=== PATIENT | female | born 1935 | race Caucasian/White ===

== ENCOUNTER → 2016-09-27 | Outpatient (CLI) | payer MEDICARE, BC ==
[~2016-09-27] MED LIST: ACET325T9 PO; ASPI-482 PO; ATOR20TA58 PO; BACL10TA PO; CALC-112 PO; CELE200C PO; CHOL10003 PO; CITA20TA5 PO; DOCU100C28 PO; GLUC100016 PO; HYDR25TA9 PO; IOHEXOL 180 MG/ML 10 ML VIAL. ONE; MULT-658 PO; OMEP20CA9 PO; ONDA4TAB10 SL; RANI150C PO; SUCR1TAB PO; methylPREDNISolone ACETATE 40 MG/ML VIAL. ONE; methylPREDNISolone ACETATE 80 MG/ML VIAL. ONE
--- NOTE | 2016-09-28 02:01 | PAIN ---
DATE OF SERVICE: 09/27/2016 INITIAL CONSULTATION FOR PAIN CLINIC CHIEF COMPLAINT: Neck and left upper extremity pain. HISTORY OF PRESENT ILLNESS: This is an 81-year-old female who presents with history of pain for about 6 months or so, increasing with activity. Pain in the base of the neck and left upper extremity, left arm are in the posterior aspect mainly in the upper arm and forearm and into the hand with tingling and numbness in the left hand intermittent in intensity with tingling, cramping and shooting pain without any specific injury or accident that she is aware of, but has increasing pain again over about 6 months, gradually getting worse. The patient reports she has had some physical therapy in June and July of this year, which did not help the pain very much. The patient reports her disability rating from 0 to 10, 10 being the worst, is 8 with family and home responsibilities, recreation, social activity, and self-care. She did have an MRI scan of the cervical spine showing multilevel cervical spinal canal stenosis, most pronounced at C3-C4, [id number]-[id number] stenosis at C5-C6 and diffuse disk bulge at C6-C7 with diffuse disk bulge, and moderate to severe bilateral neural foraminal stenosis, C7-T1 showing mild bilateral lateral recess narrowing as well. The patient is not taking any current medications for the pain as well. PAST MEDICAL HISTORY: Significant for hypertension, hearing loss, arthritis, gastroesophageal reflux. PREVIOUS SURGERY: Include fractured femur with operative ORIF and redo, bilateral rotator cuff repairs, left carpal tunnel repair, total hysterectomy, appendectomy, bilateral cataract extractions and right foot surgery. CURRENT MEDICATIONS: Include Centrum Silver, vitamin D3, Zantac, baclofen, omeprazole, sucralfate, Zofran, atorvastatin, glucosamine, hydrochlorothiazide, calcium and docusate. ALLERGIES: The patient has no known drug allergies. FAMILY HISTORY: Significant for no major medical problems or conditions that she is aware of. SOCIAL HISTORY: The patient does not smoke, does not drink alcohol. Lives at home on her own. She is a and lives locally in [place], [place], and is retired. REVIEW OF SYSTEMS: The patient's review of systems is positive for those items mentioned in history of present illness. All systems reviewed and otherwise negative. It is complete, full and well documented on the patient's chart. PHYSICAL EXAMINATION: VITAL SIGNS: Today, the patient's blood pressure is 140/79, pulse 87, respirations 20, temperature 98.0 degrees Fahrenheit, height is 5 feet 2 inches, weight 154 pounds. GENERAL: The patient is awake, alert, oriented, appropriate, very pleasant demeanor. HEENT: Head shows normocephalic, atraumatic. Extraocular movements are intact, symmetrical. Oral cavity, mucous membranes are moist and pink. Dentition is intact. NECK: Shows anterior throat supple without palpable lymphadenopathy noted. Swallow reflex is symmetrical. CHEST: Shows normal on inspection. Breath sounds are clear to auscultation bilaterally. HEART: Shows S1 and S2 clear. ABDOMEN: Soft, nontender, nondistended. No palpable organomegaly, no rebound, guarding demonstrated. BACK: The patient's back shows spine grossly midline, normal-appearing cervical lordotic curvature, some mild old flattening of lumbar lordotic curvature. Well-healed surgical scar in the lumbar distribution noted. The patient's cervical paraspinous muscle shows some moderate tenderness to palpation but only in the middle and lower distribution of paraspinous muscles diffusely bilaterally, somewhat more in the superior medial trapezius and lateral trapezius on the left than the right, but is roughly symmetrical. No evidence of atrophy, hypertrophy. No radiation of pain. Upper extremity showed deep tendon reflexes 2+ in the biceps and triceps tendons. 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 Peripheral pulses are 2+ radial distribution. No peripheral edema is noted. No clubbing, no cyanosis. Upper extremities are warm and dry to touch, equal in color and appearance. Shoulder shrug is strong and intact with some minor pain reported in the left shoulder, but without loss of strength and resistance, this is true with abduction of the shoulder at 90 degrees with some minor decrease in strength on the left side and pain reported on the left side at the base of the neck and shoulders, but not on the right. IMPRESSION: 1. This is an 81-year-old female with approximately 6-month history of increasing pain in the base of the neck, left upper extremity in a radicular fashion. 2. MRI scan cervical spine as noted. 3. Hearing loss. 4. Hypertension. 5. Arthritis. PLAN: Options were discussed with the patient including conservative medical management, physical therapy, interventional techniques and she would like to pursue interventional techniques. We discussed a cervical epidural steroid injection using description as well as anatomical models to describe the procedure. Risks were then discussed including, but not limited to bleeding, infection, possibility of epidural hematoma and subsequent neurologic compromise, dural puncture, headaches, spinal cord and/or nerve damage, side effects of steroid medication and poor results regarding pain control. The patient understands and wishes to proceed. The patient will return to clinic in approximately 2 weeks for followup, was counseled on return appointment, activity level, and side effects to be aware of. DIAGNOSES: Cervical radiculopathy with cervical degenerative disk disease and cervical spinal stenosis. PROCEDURE: Cervical epidural steroid injection in translaminar approach at the C6-C7 level using C-arm fluoroscopic guidance under sterile prep and drape using local anesthetic. MEDICATIONS INJECTED: 120 mg Depo-Medrol plus 5 mL of preservative-free normal saline and 2 mL of Isovue for contrast. CONDITION AT DISCHARGE: Stable. The patient tolerated procedure well, had no complications. GUY HICKS MD DR: RHONDA/collins JOB#: [id number] / [id number] ANNIA Pereyra MD
== END | disposition home or self-care (01) ==
LOC: PNCL 10:03
PROVIDERS: ATTEND Anesthesiology
DX: M50.123 Cervical disc disorder at C6-C7 level with radiculopathy (principal); M48.02 Spinal stenosis, cervical region; I10 Essential (primary) hypertension; M19.90 Unspecified osteoarthritis, unspecified site; H91.90 Unspecified hearing loss, unspecified ear; K21.9 Gastro-esophageal reflux disease without esophagitis; Z90.710 Acquired absence of both cervix and uterus; Z98.41 Cataract extraction status, right eye; Z98.42 Cataract extraction status, left eye
CPT/HCPCS: 62321; J1030; J1040

== ENCOUNTER → 2016-10-11 | Outpatient (CLI) | payer MEDICARE, BC ==
[~2016-10-11] MED LIST changes: +BUPIVACAINE MPF 0.25% 10 ML VIAL. ONE; -IOHEXOL 180 MG/ML 10 ML VIAL. ONE; -methylPREDNISolone ACETATE 80 MG/ML VIAL. ONE
== END | disposition home or self-care (01) ==
LOC: PNCL 09:19
PROVIDERS: ATTEND Anesthesiology
DX: M79.1 Myalgia (principal); M50.10 Cervical disc disorder with radiculopathy, unspecified cervical region; M48.02 Spinal stenosis, cervical region
CPT/HCPCS: 20552; J1030; J3490

== ENCOUNTER → 2021-05-26 | Outpatient (CLI) | payer MEDICARE, BC ==
[~2021-05-26] MED LIST changes: -BUPIVACAINE MPF 0.25% 10 ML VIAL. ONE; -CITA20TA5 PO; +CITA20TA6 PO; +HYDR-2145 PO; -HYDR25TA9 PO; +OMEP20CA16 PO; -OMEP20CA9 PO; -methylPREDNISolone ACETATE 40 MG/ML VIAL. ONE
--- NOTE | 2021-05-26 11:10 | RAD ---
EXAM: Sonographic guided thyroid fine-needle aspiration. HISTORY: 85-year-old female presents for sonographic guided fine-needle aspiration of the left thyroi d nodule demonstrated on the sonogram performed 05/12/2021. TECHNIQUE: The risks of the procedure discussed with the patient and written and verbal consent was o btained. A timeout was performed. Sonographic imaging of the left thyroid lobe was performed and the nodule concern was identified. The skin overlying this location was sterilely prepped, draped and inf iltrated with 1 percent lidocaine. Multiple passes were made through the nodule with 25-gauge needles and a Rotex needle with sonographic guidance. Manual compression was maintained until hemostasis ach ieved. A sterile bandage was placed. IMPRESSION: Sonographic guided fine-needle aspiration of a left thyroid nodule described on a sonogra m performed 05/12/2021. Electronically signed by: Yesika Russo MD (05/26/2021 11:08 AM) [id number]
== END | disposition home or self-care (01) ==
LOC: US 09:46
PROVIDERS: ATTEND Family Medicine
DX: E04.1 Nontoxic single thyroid nodule (principal); Z79.899 Other long term (current) drug therapy
CPT/HCPCS: 10005; C1819